=== PATIENT | female | born 1950 | race Caucasian/White ===

== ENCOUNTER 2016-04-06 18:23 | Emergency (ER) | payer OTHER ==
[~2016-04-06] VITALS: Ht 157.5 cm; Wt 65.2 kg
[2016-04-06 18:37] VITALS: Ht 157.5 cm; Wt 65.2 kg
[2016-04-06] MEDS ORDERED: ALBUTEROL 0.5% (NEB) 2.5 MG/0.5 ML AMP NEB STA (20:41)
[2016-04-06] MEDS ORDERED: IPRATROPIUM (NEB) 0.5 MG/2.5 ML AMP NEB STA (20:41)
[2016-04-06] MEDS ORDERED: predniSONE 20 MG TAB PO ONE (21:00)
[2016-04-06] MEDS ORDERED: IBUPROFEN 600 MG TAB PO ONE (21:00)
--- NOTE | 2016-04-06 21:38 | RADRPT ---
PROCEDURE: XR Chest AP portable CLINICAL INDICATION: Asthma exacerbation TECHNIQUE: An AP portable radiograph of the chest was submitted. COMPARISON: None. FINDINGS: Support Hardware: None Cardiovascular: The cardiovascular silhouette appears unremarkable. Lung Martinez: There is subsegmental atelectatic change seen at the medial right lung base. Pleural Spaces: No pneumothorax or pleural effusion is identified. Osseous Structures: There is ring-like calcification at the base of the left humeral head suspicious for an enchondroma. Soft Tissues: The soft tissues appear unremarkable. IMPRESSION: 1. Subsegmental atelectasis seen at the medial right lung base. 2. The aorta appears mildly atherosclerotic 3. Calcification seen in the base of the left humeral head suspicious for an enchondroma. Physician Kj Date Time Electronically viewed and signed by Physician Kj on 04/06/2016 21:38 /
--- NOTE | 2016-04-06 22:29 | ERD ---
ER Documentation Chief Complaint Date/Time DATE: 04/06/16 TIME: 22:20 Chief Complaint Cough x2 months. HPI Pleasant 65-year-old female presents to emergency department with complaints of cough and phlegm production. Patient reports coughing with deep breathing and talking, cough is productive for copious amounts of mucus. Symptomatic 2 months. But worsening over the last 2 days. Patient has low-grade fever, fatigue, reports bilateral abdominal pain secondary to coughing so hard. Patient brought in by family reports that it is difficult for patient to sleep or eat secondary to coughing. Denies chest pain, palpitations, or dizziness, or nausea. Denies blood in mucus or phlegm. Denies night sweats, unintentional weight loss or recent travel out of the [place].. She is awake, alert, in no acute distress during interview. Coughing intermittently with emesis bag utilized for mucus. ROS All systems reviewed and are negative except as per history of present illness. Medications Home Meds Active Scripts Albuterol Sulfate* (Ventolin HFA*) 18 Gm Hfa.aer.ad, 2 PUFF INHALATION Q6H, #1 INHALER Prov:DORIS,KILEY 04/06/16 Prednisone* (Prednisone*) 20 Mg Tab, 40 MG PO DAILY for 4 Days, TAB Prov:DORIS,KILEY 04/06/16 Azithromycin* (Zithromax*) 250 Mg Tablet, 250 MG PO .ZPACK DIRECTED, #6 TAB TAKE 500 MG (2 TABS) THE FIRST DAY THEN 250 MG (1 TAB) DAYS 2-5 Prov:DORIS,KILEY 04/06/16 Allergies Allergies: Coded Allergies: No Known Allergy (Verified , 12/31/14) PMhx/Soc Medical and Surgical Hx: pt denies Surgical Hx History of Surgery: No Anesthesia Reaction: No Hx Neurological Disorder: No Hx Respiratory Disorders: No Hx Cardiac Disorders: Yes (HTN, HIGH CHOLESTEROL) Hx Psychiatric Problems: Yes (depression) Hx Miscellaneous Medical Probl: Yes (DM, GERD) Hx Alcohol Use: No Hx Substance Use: No Hx Tobacco Use: No Smoking Status: Never smoker Physical Exam Vitals Vital Signs Date Time Temp Pulse Resp B/P Pulse Ox O2 Delivery O2 Flow Rate FiO2 04/06/16 22:48 98.0 94 19 133/74 96 Room Air 04/06/16 21:07 91 20 98 21 04/06/16 18:37 100.2 95 20 128/72 97 Vitals stable, nursing notes reviewed Physical Exam Const: No acute distress Head: Atraumatic Eyes: Normal Conjunctiva PERRLA, EOMI ENT: Normal External Ears, nasal mucosa nonedematous, mucous membranes moist, . Neck: Full range of motion..~ No meningismus. Resp: Respirations even, cough with deep breathing, diminished bases. No rales or wheezes, poor air movement. Cardio: Regular rate and rhythm, no murmurs Abd: Lateral upper abdominal pain, intercostal tenderness. Skin: Skin is warm and dry Back: No midline or flank tenderness Ext: No cyanosis, or edema Neur: Awake and alert Psych: Normal Mood and Affect Results 24 hrs Current Medications Medications (Trade) Dose Ordered Sig/Emmy Route PRN Reason Start Time Stop Time Status Last Admin Dose Admin Albuterol (Proventil 0.5% (Neb)) 5 mg ONCE STAT NEB 04/06/16 20:41 04/06/16 20:44 DC 04/06/16 21:07 Ipratropium [place] (Atrovent 0.02% (Neb)) 0.5 mg ONCE STAT NEB 04/06/16 20:41 04/06/16 20:44 DC 04/06/16 21:07 Ibuprofen (Motrin) 600 mg ONCE ONCE PO 04/06/16 21:00 04/06/16 21:01 DC 04/06/16 21:07 Prednisone (Prednisone) 60 mg ONCE ONCE PO 04/06/16 21:00 04/06/16 21:01 DC 04/06/16 21:07 Chest X-ray 1V Interpreted by Dr Chew: Soft Tissue: No acute abnormalities Bones: Calcifications seen in the base of the left humeral head suspicion for enchondroma Mediastinum/Cardiac Silhouette/Lungs: [The aorta appears mildly atherosclerotic, lung capmbell: There is a subsegmental atelectatic changes seen at the medial right lung base] Procedures/MDM Pleasant non-Telugu speaking 65-year-old female in room with son for translation. Patient reports a two-month history of cough, and phlegm production. Symptoms worsening over the last 2 days with fever, copious amounts of mucus with cough, coughing so hard her abdomen hurts. Patient denies history of asthma or COPD. Has not used inhalers in the past. Low- grade fever suggestive of bacterial infection. Tuberculosis infection considered but negative risk factors assessed. X-ray shows right middle lobe atelectasis suggestive of pneumonia. I patient is previously healthy, no drug drug resistance and likely, I will treat for clinical pneumonia as outpatient with strict return to emergency department policy. I feel the patient is stable for discharge at this time. I have discussed results, examination findings, the treatment plan with the patient and family present prior to discharge. Indications for emergent reevaluation, side effects of medication were also discussed. All questions were answered. Patient verbalizes understanding and agrees with plan of care. Departure Diagnosis: Primary Impression: Pneumonia Pneumonia type: due to unspecified organism Laterality: right Lung location : middle lobe of lung Qualified Code: J18.9 - Pneumonia of right middle lobe due to infectious organism Condition: Good Patient Instructions: Pneumonia (Adult), What Is Pneumonia? Additional Instructions: Thank you for for coming to [facility] for your care today. Please ask your nurse or provider if you have questions about your care today and do not leave until all your questions have been answered. Please use any medications given as directed and follow-up with your doctor (or the doctor you were referred to) in the next 2-3 days. If you do not have a primary care doctor you may follow up at the [facility] (listed below). You may also use motrin and tylenol as needed for fever and/or pain unless instructed otherwise by your provider or nurse. Indications for more urgent follow-up have been discussed, but you may return to the Emergency Department at ANY time for any worrisome or worsening symptoms. If you have abdominal pain, please know that no test or exam you received is perfect and you should follow up within 8 hours for continued pain. If you had any imaging studies today, such as an X-Ray or CT Scan, these studies will be reviewed later by a radiologist. You will be called if there are important findings that were not identified today, so make sure the contact information you provided at registration is correct. If you received any narcotic pain control medicine today, such as Vicodin, Morphine or Dilaudid, your coordination and judgment may be affected for a number of hours. Please do not drive or operate heavy machinery, and you may want someone to assist you at home. If you were given a prescription for narcotic medication, be aware that it is very addictive- use sparingly and only if necessary. Comments Follow-up with her primary care physician in 2 days for reevaluation of clinical pneumonia KILEY GEORGE Apr 06, 2016 22:29
[2016-04-06] MEDS ORDERED: AZIT250T94 PO (22:30)
[2016-04-06] MEDS ORDERED: PRED20TA PO (22:31)
[2016-04-06] MEDS ORDERED: ALBU18HF INHALATION (22:31)
[2016-04-06 22:48] VITALS: BP 133/74; PULSE 94; RESP 19; TEMP 98
== END 2016-04-06 22:48 | disposition home or self-care (01) ==
LOC: FTE 18:23
DX: J18.9 Pneumonia, unspecified organism (principal); I10 Essential (primary) hypertension; E11.9 Type 2 diabetes mellitus without complications
CPT/HCPCS: 71010; 87400; 94664; J7512; Z7502; Z7610

== ENCOUNTER 2017-07-17 16:00 | Emergency (ER) | END 2017-07-17 19:00 | disposition home or self-care (01) ==

== ENCOUNTER 2018-04-12 16:38 | Emergency (ER) | payer MEDICARE, OTHER ==
[~2018-04-12] VITALS: Ht 167.6 cm; Wt 66.9 kg
[~2018-04-12 16:38] MED LIST: ALBU18HF INHALATION; AZIT250T PO; IBUP-1542 PO; PRED20TA PO
[2018-04-12 16:50] VITALS: Ht 167.6 cm; Wt 66.9 kg
[2018-04-12] MEDS ORDERED: ACETAMINOPHEN 500 MG TAB PO STA (20:01)
[2018-04-12] MEDS ORDERED: SOD CHLORIDE 0.9% 1,000 ML IV STA (20:01)
--- NOTE | 2018-04-12 20:24 | ERD ---
ER Documentation Chief Complaint Chief Complaint Complains of severe headaxhe x 1 month HPI This is a 67-year-old female with a history of hypertension and diabetes mellitus presents ED with complaints of off-and-on headache for the past month. Patient states the headache has been getting worse over the past month. Patient rates headache at an 8 out of 10 pain and localizes it to the frontal region. Patient states that at times she feels dizzy and that movement makes it worse. Patient denies any dizziness at this time. Patient denies any fall or injury to account for the headache. Patient also admits to coughing. Patient admits to coughing so hard that she is vomited on a couple of occasions. Denies blurry vision, changes in vision, confusion, chest pain, shortness breath, trouble breathing, fever, chills and other symptoms. No known drug allergies. ROS All systems reviewed and are negative except as per history of present illness. Medications Home Meds Active Scripts Ibuprofen* (Motrin*) 600 Mg Tab, 600 MG PO Q6H PRN for PAIN, #30 TAB Prov:LUCIANO LAM PA-C 07/17/17 Albuterol Sulfate* (Ventolin HFA*) 18 Gm Hfa.aer.ad, 2 PUFF INHALATION Q6H, #1 INHALER Prov:DORIS,KILEY 04/06/16 Prednisone* (Prednisone*) 20 Mg Tab, 40 MG PO DAILY for 4 Days, TAB Prov:DORIS,KILEY 04/06/16 Azithromycin* (Zithromax*) 250 Mg Tablet, 250 MG PO .[place]PACK DIRECTED, #6 TAB TAKE 500 MG (2 TABS) THE FIRST DAY THEN 250 MG (1 TAB) DAYS 2-5 Prov:DORIS,KILEY 04/06/16 Allergies Allergies: Coded Allergies: No Known Allergy (Verified , 12/31/14) PMhx/Soc History of Surgery: No Anesthesia Reaction: No Hx Neurological Disorder: No Hx Respiratory Disorders: No Hx Cardiac Disorders: Yes (HTN, HIGH CHOLESTEROL) Hx Psychiatric Problems: Yes (depression) Hx Miscellaneous Medical Probl: Yes (DM, GERD) Hx Alcohol Use: No Hx Substance Use: No Hx Tobacco Use: No FmHx Family History: No diabetes Physical Exam Vitals Vital Signs Date Temp Pulse Resp B/P (MAP) Pulse Ox O2 O2 Flow FiO2 Time Delivery Rate 04/12/18 99.3 81 20 131/63 96 16:50 (85) Physical Exam Physical Exam Vitals signs: Reviewed by me. General: Well developed, well nourished, in mild distress. Patient is awake and alert. Head: Normocephalic, atraumatic. Eyes: Normal conjunctiva, Pupils PERRLA, EOM intact bilaterally x6 ENT: Pharynx is clear, Moist mucous membranes, external ears, nose and mouth normal Neck: Supple, no masses, lymphadenopathy or JVD Respiratory: Clear to auscultation bilaterally with no wheezing, rhonchi, rales, no distress Cardiovascular: RRR, no murmurs, rubs, or gallops Abdominal: Soft, non-tender, non-distended, no peritoneal signs : Deferred MSK: No edema, no unilateral swelling, 5/5 strength Back: No midline tenderness. No flank tenderness Neurologic: Alert and oriented, moving all extremities, normal speech, no focal weakness, no cerebellar signs. Normal mentation Cranial nerves II through XII intact bilaterally neuro: M/S: Alert and oriented Face: EOMI, face and pharynx with normal sensation and function Motor: Normal strength throughout Sensation: Normal sensation throughout Speech: Normal Cerebel: Normal coordination Normal gait Normal finger to nose Skin: warm and dry, No rash Psych: Normal mood Result Diagram: 04/12/18202704/12/182027 Results 24 hrs Laboratory Tests Test 04/12/18 20:28 White Blood Count 7.5 10^3/ul Red Blood Count 4.24 10^6/ul Hemoglobin 13.2 g/dl Hematocrit 40.0 % Mean Corpuscular Volume 94.3 fl Mean Corpuscular Hemoglobin 31.1 pg Mean Corpuscular Hemoglobin Concent 33.0 g/dl Red Cell Distribution Width 13.7 % Platelet Count 268 10^3/UL Mean Platelet Volume 10.2 fl Immature Granulocytes % 0.400 % Neutrophils % 44.6 % Lymphocytes % 44.7 % Monocytes % 7.3 % Eosinophils % 2.5 % Basophils % 0.5 % Nucleated Red Blood Cells % 0.0 /100WBC Immature Granulocytes # 0.030 10^3/ul Neutrophils # 3.3 10^3/ul Lymphocytes # 3.4 10^3/ul Monocytes # 0.6 10^3/ul Eosinophils # 0.2 10^3/ul Basophils # 0.0 10^3/ul Nucleated Red Blood Cells # 0.0 10^3/ul Prothrombin Time 11.6 Sec Prothrombin Time Ratio 0.9 INR International Normalized Ratio 0.84 Activated Partial Thromboplast Time 27.9 Sec Urine Color STRAW Urine Clarity CLEAR Urine pH 5.0 Urine Specific [place] 1.009 Urine Ketones NEGATIVE mg/dL Urine Nitrite NEGATIVE mg/dL Urine Bilirubin NEGATIVE mg/dL Urine Urobilinogen NEGATIVE mg/dL Urine Leukocyte Esterase NEGATIVE Dana/ul Urine Hemoglobin NEGATIVE mg/dL Urine Glucose NEGATIVE mg/dL Urine Total Protein NEGATIVE mg/dl Sodium Level 144 mmol/L Potassium Level 4.1 mmol/L Chloride Level 105 mmol/L Carbon Dioxide Level 25 mmol/L Anion Gap 14 Blood Urea Nitrogen 21 mg/dl Creatinine 1.18 mg/dl Est Glomerular Filtrat Rate mL/min 46 mL/min Glucose Level 106 mg/dl Calcium Level 9.8 mg/dl Total Bilirubin 0.1 mg/dl Direct Bilirubin 0.00 mg/dl Indirect Bilirubin 0.1 mg/dl Aspartate Amino Transf (AST/SGOT) 23 IU/L Alanine Aminotransferase (ALT/SGPT) 13 IU/L Alkaline Phosphatase 67 IU/L Troponin I < 0.012 ng/ml Total Protein 8.2 g/dl Albumin 4.7 g/dl Globulin 3.50 g/dl Albumin/Globulin Ratio 1.34 Current Medications Medications Dose Sig/Emmy Start Time Status Last (Trade) Ordered Route PRN Stop Time Admin Dose Reason Admin Sodium 1,000 ml @ Q1H STAT 04/12/18 DC 04/12/18 Chloride 1,000 mls/hr IV 20:01 20:30 04/12/18 21:00 1,000 mg ONCE STAT 04/12/18 DC 04/12/18 Acetaminophen PO 20:01 20:30 (Tylenol 04/12/18 20:11 Tab) Procedures/MDM EKG, MONITORS, & DIAGNOSTIC IMAGING: [place] [id number] Radiology Main Line: [phone] DIAGNOSTIC IMAGING REPORT Patient: GOMEZ GONZALEZ : 1950 Age: 67 Sex: F MR #: [id number] DOS: 04/12/182000 Ordering MD: REJI VALERIO PA-C Location: [facility] Room/Bed: PROCEDURE: CT Brain without contrast. CLINICAL INDICATION: Headache. TECHNIQUE: A CT of the brain without contrast was performed utilizing axial sections from the skull base through the vertex. One or more the following does reduction techniques were utilized: Automated exposure control, adjustment of the mA/ or kV according to patient's size, or use of iterative reconstruction technique. Total exam CTDIvol is 37.59 MGy and DLP is 674.23 mGy-cm. DICOM images are available. COMPARISON: Brain CT 01/05/2007 images are not available for comparison. FINDINGS: The ventricles and sulci are mildly prominent indicative of volume loss. There is no intracranial hemorrhage, mass effect or midline shift. No abnormal intra- axial or extra-axial fluid collections are seen. The bee/white matter differentiation is preserved. There are mild foci of hypoattenuation in the white matter, which are nonspecific in etiology but likely reflect chronic small vessel ischemic changes. The visualized paranasal sinuses are essentially clear. IMPRESSION: 1. No acute intracranial hemorrhage, transcortical infarction or mass effect. 2. Mild chronic small vessel ischemic changes. 3. Mild generalized cerebral volume loss. RPTAT: HFN .Campbell Ackerman MD, MD Date Time Electronically viewed and signed by .Campbell Ackerman MD, MD on 04/12/2018 21:16 .N/ CC: REJI VALERIO PA-C [id number] [place] [id number] Radiology Main Line: [phone] DIAGNOSTIC IMAGING REPORT Patient: GOMEZ GONZALEZ : 1950 Age: 67 Sex: F MR #: [id number] DOS: 04/12/182000 Ordering MD: REJI VALERIO PA-C Location: [facility] Room/Bed: PROCEDURE: XR Chest. CLINICAL INDICATION: Pain TECHNIQUE: Frontal chest x-ray was obtained. COMPARISON: Chest x-ray April 06, 2016 FINDINGS: The heart is not enlarged. Mediastinum is not widened. No hilar masses seen. Lungs are clear of any infiltrates. There is no effusion or pneumothorax. 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 IMPRESSION: No evidence for active cardiopulmonary disease. .Cliff Martinez MD, MD Date Time Electronically viewed and signed by .Cliff Martinez MD, MD on 04/12/2018 20:48 .A/ CC: REJI VALERIO PA-C [id number] LAB INTERPRETATION: CBC shows no evidence of hemorrhage or infection Chemistry remarkable for a mildly elevated anion gap of 14, bun 21, creatinine 1.18, GFR 46 Liver function test shows no evidence of acute biliary or hepatic dysfunction Coagulation study showed no concerning coagulopathy Cardiac biomarkers show no evidence of acute myocardial injury or coronary ischemia Urinalysis unremarkable ER COURSE: The patient was given Tylenol and IV normal saline The medication was well tolerated and the patient reports improvement in symptoms. The patient was stable throughout ED course. I kept the patient and/or family informed of laboratory and diagnostic imaging results throughout the emergency room course. The patient was promptly evaluated and a treatment plan was devised based on H&P and other data. This plan was discussed with the patient who agreed and had no further questions or concerns prior to discharge. MEDICAL DECISION MAKING: This is a 67-year-old female presents ED with complaint of headache that is been off and on for the past month. The patient's headache is unlikely related to serious etiology. CT imaging in the emergency department is unremarkable. Chest x-ray is unremarkable. Blood work is remarkable for a mildly elevated creatinine and bun. Discussed with patient and overseeing physician dr. price. Otherwise blood work and urinalysis in the emergency department are unremarkable. Neurologic exam is unremarkable. Patient was given acetaminophen and IV normal saline reports improvement in pain. Patient was given copies of all imaging and lab work on the emergency department today. The patient does not exhibit any clinical signs or symptoms, and has no risk factors to suggest headache etiology such as meningitis, sepsis, subarachnoid hemorrhage, acute vertebral or carotid dissection, intracranial mass, epidural, subdural hematoma, dural venous sinus thrombosis, giant cell arteritis, CVA, encephalitis, meningitis, or pseudotumor cerebri. Patient's vitals are stable and patient can be managed with close outpatient follow-up. Patient was advised to follow-up with her primary care in the next 48 hours. Return to ED with any worsening symptoms. DISPOSITION PLAN: We discussed follow up with the patient's primary care doctor within 24 to 48 hours. Patient counseled regarding my diagnostic impression and care plan. Prior to discharge all questions answered. Pt agrees with treatment plan and understands strict return precautions. Precautionary instructions provided including instructions to return to the ER if not improving or for any worsening or changing symptoms or concerns. SPECIALIST FOLLOW UP RECOMMENDED: None Patient has been advised to follow up with primary care in 1-2 days. Disclaimer: Inadvertent spelling and grammatical errors are likely due to EHR/dictation software use and do not reflect on the overall quality of patient care. Also, please note that the electronic time recorded on this note does not necessarily reflect the actual time of the patient encounter. Blood Pressure Assessment: Patient's blood pressure was elevated (>120/80) but appears stable without evidence of hypertension emergency or urgency. The patient was counseled about the risks of hypertension and urged to pursue outpa tient monitoring and therapy within a week with their primary care physician. Departure Diagnosis: Primary Impression: Headache Headache type: unspecified Headache chronicity pattern: acute headache Intractability: not intractable Qualified Codes: R51 - Headache Additional Impression: Elevated serum creatinine Condition: Stable Patient Instructions: Headache, Tension, Self-Care for Headaches Referrals: COMM[facility]ITY CLINICS Additional Instructions: Patient advised to return to the ED immediately for new or worsening symptoms. Patient advised to follow up with primary care provider in the next 24-48 hours. Patient verbalized understanding and agrees with treatment plan and course of action. If patient has no primary care they may follow up with one of the community clinics listed on the following page or one of the options listed below [facility] [address] [place] [id number] or [facility] [address] [place] [address] or [facility] [address] [place] [address] REJI VALERIO PA-C Apr 12, 2018 20:24
[2018-04-12] MEDS ORDERED: ACET500C5 PO (22:05)
[2018-04-12 23:14] VITALS: BP 126/68; PULSE 84; RESP 20
== END 2018-04-12 23:14 | disposition home or self-care (01) ==
LOC: FTE 16:38
DX: R51 Headache (principal); R79.89 Other specified abnormal findings of blood chemistry; I10 Essential (primary) hypertension; E11.9 Type 2 diabetes mellitus without complications; R07.9 Chest pain, unspecified
CPT/HCPCS: 70450; 71045; 80053; 81003; 84484; 85025; 85610; 85730; 87400; J7030; 36415

== ENCOUNTER 2018-08-17 16:05 | Emergency (ER) | payer MEDICARE, OTHER ==
[~2018-08-17] VITALS: Ht 157.5 cm; Wt 67.4 kg
[~2018-08-17 16:05] MED LIST changes: +ACET500C5 PO
[2018-08-17 16:15] VITALS: BP 137/69; PULSE 75; RESP 18; Ht 157.5 cm; Wt 67.4 kg
[2018-08-17] MEDS ORDERED: ACET500C5 PO (19:12)
[2018-08-17] MEDS ORDERED: D-ME473S2 PO (19:12)
[2018-08-17] MEDS ORDERED: AZIT250T PO (19:12)
--- NOTE | 2018-08-17 19:14 | ERD ---
ER Documentation Chief Complaint Chief Complaint cough , fever , painful urination x 3 weeks HPI 68-year-old female presents with cough for last 3 weeks. It is productive mucus. She states she had subjective fevers as well but no fever triage. She also has history of incontinence with coughing. She denies abdominal pain, dysuria. ROS All systems reviewed and are negative except as per history of present illness. Medications Home Meds Active Scripts Acetaminophen* (Tylophen*) 500 Mg Capsule, 1 CAP PO Q6H PRN for PAIN AND OR ELEVATED TEMP, #15 CAP Prov:KENZIE YOUNG MD 08/17/18 Dextromethorphan Hb-Promethazine Hcl* (Promethazine DM* Syrup) 473 Ml Syrup, 5 ML PO Q6 PRN for COUGH for 5 Days, ML Prov:KENZIE YOUNG MD 08/17/18 Azithromycin* (Zithromax*) 250 Mg Tablet, 250 MG PO .ZPACK DIRECTED, #6 TAB TAKE 500 MG (2 TABS) THE FIRST DAY THEN 250 MG (1 TAB) DAYS 2-5 Prov:KENZIE YOUNG MD 08/17/18 Acetaminophen* (Tylophen*) 500 Mg Capsule, 1 CAP PO Q6H PRN for PAIN AND OR ELEVATED TEMP, #20 CAP Prov:REJI VALERIO PA-C 04/12/18 Ibuprofen* (Motrin*) 600 Mg Tab, 600 MG PO Q6H PRN for PAIN, #30 TAB Prov:LUCIANO LAM PA-C 07/17/17 Albuterol Sulfate* (Ventolin HFA*) 18 Gm Hfa.aer.ad, 2 PUFF INHALATION Q6H, #1 INHALER Prov:DORIS,KILEY 04/06/16 Prednisone* (Prednisone*) 20 Mg Tab, 40 MG PO DAILY for 4 Days, TAB Prov:DORIS,KILEY 04/06/16 Azithromycin* (Zithromax*) 250 Mg Tablet, 250 MG PO .ZPACK DIRECTED, #6 TAB TAKE 500 MG (2 TABS) THE FIRST DAY THEN 250 MG (1 TAB) DAYS 2-5 Prov:DORIS,KILEY 04/06/16 Allergies Allergies: Coded Allergies: No Known Allergy (Verified , 12/31/14) PMhx/Soc Medical and Surgical Hx: pt denies Surgical Hx History of Surgery: No Anesthesia Reaction: No Hx Neurological Disorder: No Hx Respiratory Disorders: No Hx Cardiac Disorders: Yes (HTN, HIGH CHOLESTEROL) Hx Psychiatric Problems: Yes (depression) Hx Miscellaneous Medical Probl: Yes (DM, GERD) Hx Alcohol Use: No Hx Substance Use: No Hx Tobacco Use: No FmHx Family History: No diabetes, No coronary disease, No other Physical Exam Vitals Vital Signs Date Temp Pulse Resp B/P (MAP) Pulse Ox O2 O2 Flow FiO2 Time Delivery Rate 08/17/18 98.3 75 18 137/69 98 16:15 (91) Physical Exam Const: No acute distress Head: Atraumatic Eyes: Normal Conjunctiva ENT: Normal External Ears, Nose and Mouth. TMs and oropharynx normal. Neck: Full range of motion. No meningismus. Resp: Clear to auscultation bilaterally. Dry coarse cough without rales, wheezing or retractions. Cardio: Regular rate and rhythm, no murmurs Abd: Soft, non tender, non distended. Normal bowel sounds Skin: No petechiae or rashes Back: No midline or flank tenderness Ext: No cyanosis, or edema Neur: Awake and alert Psych: Normal Mood and Affect Results 24 hrs Laboratory Tests Test 08/17/18 18:33 Urine Color STRAW Urine Clarity CLEAR Urine pH 5.0 Urine Specific [place] 1.009 Urine Ketones NEGATIVE mg/dL Urine Nitrite NEGATIVE mg/dL Urine Bilirubin NEGATIVE mg/dL Urine Urobilinogen NEGATIVE mg/dL Urine Leukocyte Esterase NEGATIVE Dana/ul Urine Hemoglobin NEGATIVE mg/dL Urine Glucose NEGATIVE mg/dL Urine Total Protein NEGATIVE mg/dl Procedures/MDM Urine is negative. Chest X-ray 1V Interpreted by me: Soft Tissue: No acute abnormalities Bones: No acute abnormalities Mediastinum/Cardiac Silhouette/Lungs: No acute abnormalities. Impression- normal 1 view chest x-ray Since with productive cough for last few weeks. She has no signs of infiltrate, hypoxemia, rest distress. She has signs and symptoms of likely stress incontinence as well without findings of infection or concerning abdominal pain. We will treat empirically with Zithromax, promethazine, Tylenol, primary care follow-up and return precautions. The patient was stable with no new complaints during the ER course. Clinically, there is no current evidence to suggest meningitis, sepsis, acute abdomen, pneumonia, stroke, acute coronary syndrome, pulmonary embolism, aortic dissection or any other emergent condition appearing to require further evaluation or hospitalization. Patient counseled regarding my diagnostic impression and care plan. Prior to discharge all questions answered. Pt agrees with treatment plan and understands strict return precautions. Pt is instructed to follow up with primary care provider within 24- 48 hours. Precautionary instructions provided including instructions to return to the ER if not improving or for any worsening or changing symptoms or concerns. Disclaimer: Inadvertent spelling and grammatical errors are likely due to EHR/dictation software use and do not reflect on the overall quality of patient care. Also, please note that the electronic time recorded on this note does not necessarily reflect the actual time of the patient encounter. Departure Diagnosis: Primary Impression: Cough Condition: Stable Patient Instructions: Bronchitis, Antiobiotic Treatment (Adult), Cough, Chronic, Uncertain Cause, (Adult) Referrals: NO PRIMARY,CARE PHYSICIAN (PCP) Additional Instructions: Urine normal today. X-ray appears without abnormality as well. We will treat for infection given the duration of symptoms. Recheck for new or worsening symptoms with primary care doctor. KENZIE YOUNG MD Aug 17, 2018 19:14
== END 2018-08-17 19:25 | disposition home or self-care (01) ==
LOC: FTE 16:05
DX: R05 Cough (principal); I10 Essential (primary) hypertension; E11.9 Type 2 diabetes mellitus without complications
CPT/HCPCS: 71045; 81003